=== PATIENT | female | born 1955 | race Hispanic/Latino ===

== ENCOUNTER 2022-06-21 00:05 | Emergency (ER) | payer OTHER ==
[~2022-06-21] VITALS: Ht 154.9 cm; Wt 73.0 kg
[2022-06-21] MEDS ORDERED: MORPHINE 2 MG SYG IM ONE (01:00)
[2022-06-21] MEDS ORDERED: ONDANSETRON ODT 4MG TAB SL ONE (01:00)
[2022-06-21] MEDS ORDERED: CEFTRIAXONE 1G VIAL IM ONE (01:00)
[2022-06-21 01:16] LABS: APPEARANCE,URINE TURBID (CLEAR); BILIRUBIN,URINE NEGATIVE (NEGATIVE); COLOR,URINE YELLOW (YELLOW); GLUCOSE, URINE (UA) 150 mg/dL (NEGATIVE); KETONES,URINE NEGATIVE (NEGATIVE); LEUKOCYTE ESTERASE ,URINE 500 Leu/uL (NEGATIVE); NITRATE,URINE NEGATIVE (NEGATIVE); OCCULT BLOOD,URINE SMALL (NEGATIVE); PH,URINE 5.5 (5.0-8.0); PROTEIN,URINE 100 mg/dL (NEGATIVE); UROBILINOGEN,URINE 0.2 mg/dL (0.2-1.0)
[2022-06-21 01:26] LABS: BACTERIA,URINE MANY /HPF (None Seen); WBC,URINE TNTC /HPF (0-1)
[2022-06-21 01:28] LABS: SQUAMOUS EPITHELIAL CELL,UR Few /HPF (0-2)
[2022-06-21 01:33] VITALS: BP 141/78
[2022-06-21] MEDS ORDERED: AMOX1TAB16 PO (01:53)
== END 2022-06-21 02:05 | disposition home or self-care (01) ==
LOC: EDH 00:05
DX: T83.098A Other mechanical complication of other urinary catheter, initial encounter (principal); N39.0 Urinary tract infection, site not specified; I10 Essential (primary) hypertension; E78.00 Pure hypercholesterolemia, unspecified; E11.9 Type 2 diabetes mellitus without complications; Z79.2 Long term (current) use of antibiotics
CPT/HCPCS: 99284; 87077; 87088; 87186; 81001; 51702; 96372; J0696

== ENCOUNTER 2023-01-02 15:51 | Inpatient (IN) | payer OTHER ==
[~2023-01-02] VITALS: Ht 152.4 cm; Wt 78.6 kg
[2023-01-02] MEDS: METRONIDAZOLE 500MG/100ML BAG 100 ML IVPB SCH (05:15)
[~2023-01-02 15:51] MED LIST: AMOX1TAB16 PO
[2023-01-02 17:32] LABS: BASOPHILS # (AUTO) 0.06 K/uL (0.00-0.20); BASOPHILS % (AUTO) 0.4 % (0.0-5.0); EOSINOPHILS # (AUTO) 0.19 K/uL (0.00-0.70); EOSINOPHILS % (AUTO) 1.2 % (0.0-8.0); HEMATOCRIT 27.7 % (36-48); IMMATURE GRANULOCYTE ABSOLUTE 0.41 K/uL (0-1); LYMPHOCYTES # (AUTO) 1.3 K/uL (1.0-4.8); MEAN CORPUSCULAR HEMOGLOBIN 28.4 pg (27.0-33.0); MEAN CORPUSCULAR HGB CONC 34.7 g/dL (32.0-36.0); MONOCYTES % (AUTO) 6.6 % (3.0-13.0); NEUTROPHILS # (AUTO) 12.6 K/uL (1.8-7.7); NEUTROPHILS % (AUTO) 81.2 % (40.0-77.0); PLATELET COUNT (AUTO) 366 K/uL (130-400); RED BLOOD CELL COUNT(AUTO) 3.38 MIL/uL (4.00-5.50); WHITE BLOOD COUNT (AUTO) 15.6 K/uL (4.8-10.8)
[2023-01-02 18:07] LABS: ALBUMIN 2.5 g/dL (3.5-5.0); BILIRUBIN,TOTAL 0.3 mg/dL (0.2-1.0); CREATININE 2.2 mg/dL (0.5-1.5); POTASSIUM 3.5 mmol/L (3.5-5.1); TOTAL PROTEIN, SERUM 8.7 g/dL (6.0-8.3)
[2023-01-02] MEDS ORDERED: ZOSYN 3.375GM +NS 50ML IVPB ONE (18:30)
[2023-01-02] MEDS ORDERED: 0.9%NACL 1000ML 1,365 ML IV ONE (18:30)
[2023-01-02] MEDS ORDERED: VANCOMYCIN KIT 1 GM/250 ML IV.KIT IV ONE (18:30)
[2023-01-02 18:57] LABS: BAND NEUTROPHILS % (MANUAL) 14 % (0-2); EOSINOPHILS % (MANUAL) 2 % (1-6); LYMPHOCYTES % (MANUAL) 9 % (22-44); MAN.DIFF COMMENT-IMPRESSION MANUAL DIFFERENTIAL; MONOCYTES % (MANUAL) 9 % (2-9); PLATELET MORPHOLOGY COMMENT ADEQUATE; SEGMENTED NEUTROPHILS % 66 % (40-70); TOTAL CELLS COUNTED 100; WBC MORPHOLOGY CONSISTENT W/DIFF
[2023-01-02] MEDS ORDERED: NITROGLYCERIN 0.4 MG SL TAB SL PRN (19:00)
[2023-01-02] MEDS ORDERED: ALBUTEROL 0.083% 2.5 MG/3 ML INH IH PRN (19:00)
[2023-01-02] MEDS ORDERED: GUAIFENESIN-DM 200/20 MG 10 ML PO PRN (19:00)
[2023-01-02] MEDS ORDERED: DOCUSATE SODIUM 100 MG CAP PO PRN (19:00)
[2023-01-02] MEDS ORDERED: DiphenhydrAMINE HCL 50 MG/ML VIAL IV PRN (19:00)
[2023-01-02] MEDS ORDERED: ACETAMINOPHEN 325 MG TAB PO PRN (19:00)
[2023-01-02] MEDS ORDERED: GUAIFENESIN SUGAR-FREE 100 MG/5 ML UDCUP PO PRN (19:00)
[2023-01-02] MEDS ORDERED: ALPRAZOLAM 0.5 MG TABLET PO PRN (19:00)
[2023-01-02] MEDS ORDERED: LACTULOSE 20 GM/30 ML UDCUP PO PRN (19:00)
[2023-01-02] MEDS ORDERED: MAG/ALUM/SIMETH 30 ML UDCUP PO PRN (19:00)
[2023-01-02] MEDS ORDERED: POLYETHYLENE GLYCOL 3350 17 GM POWD.PACK PO PRN (19:00)
[2023-01-02] MEDS ORDERED: ZOLPIDEM TARTRATE 5 MG TAB PO PRN (19:00)
[2023-01-02] MEDS ORDERED: HYDRALAZINE 25MG TABLET PO PRN (19:00)
[2023-01-02] MEDS ORDERED: DEXTROSE 50%-WATER 50 ML DISP.SYRIN IV PRN (19:30)
[2023-01-02] MEDS ORDERED: GLUCAGON 1MG KIT 1 MG ML IM PRN (19:30)
[2023-01-02] MEDS ORDERED: MANNITOL 20% 250ML IV.SOLN IV SCH (19:30)
[2023-01-02] MEDS ORDERED: MAGNESIUM 2GM PREMIX 50ML 50 ML IV SCH (19:30)
[2023-01-02] MEDS ORDERED: 0.9%NACL 1000ML 1,000 ML IV SCH (19:30)
[2023-01-02] MEDS ORDERED: POTASSIUM CHLORIDE 10MEQ/100ML 100 ML IV PRN (19:30)
[2023-01-02] MEDS ORDERED: INSULIN REGULAR, HUMAN 3ML 100 UNIT in 0.9%NACL 100ML 100 ML IV SCH ×2 (19:30)
[2023-01-02] MEDS ORDERED: MANNITOL 20% 500 ML IV.SOLN IV SCH (19:30)
[2023-01-02] MEDS ORDERED: D5W-1/2 NS/20MEQ KCL 1,000 ML IV SCH (19:30)
[2023-01-02 19:38] LABS: ABG BASE EXCESS -8.1 mmol/L (-2.0-3.0); ABG HCO3 15.8 mmol/L (21.0-28.0); ABG OXYGEN SATURATION 97.3 % (95.0-99.0); ABG PCO2 29 mmHg (32-45); ABG PH 7.356 (7.35-7.450); PO2, ARTERIAL BG 97.9 mmHg (83.0-108.0); VENT MODE, BG RA (ROOM AIR)
[2023-01-02] MEDS: FAMOTIDINE 20MG VIAL IV SCH (20:23)
[2023-01-02] MEDS: HEPARIN 5,000 UNIT VIAL SQ SCH (20:23)
[2023-01-02 20:24] VITALS: PULSE 90; RESP 18; O2SAT 100
[2023-01-02] MEDS: INSULIN NPH 100 UNIT/ML 3ML SQ SCH (22:02)
[2023-01-02 22:22] LABS: CREATININE 2.2 mg/dL (0.5-1.5); POTASSIUM 3.4 mmol/L (3.5-5.1)
[2023-01-02] MEDS: ZOSYN 3.375GM +NS 50ML IVPB SCH (23:33)
[2023-01-02 23:34] LABS: CREATININE 1.8 mg/dL (0.5-1.5)
[2023-01-02 23:43] LABS: POTASSIUM 2.9 mmol/L (3.5-5.1)
[2023-01-03] VITALS (22 sets, daily range): BP systolic 98–137; BP diastolic 45–70; PULSE 67–90; RESP 12–18; O2SAT 95–96
[2023-01-03] MEDS ORDERED: HYDROMORPHONE 0.5 MG SYG (0.5MG/0.5ML) ONE (00:10)
[2023-01-03] MEDS: HYDROMORPHONE 2 MG VIAL (2MG/ML) IVP PRN ×2 (00:12→13:50)
[2023-01-03] MEDS: CLINDAMYCIN IVPB 600MG/50ML 50 ML IV SCH ×4 (03:14→19:13)
[2023-01-03] MEDS: ONDANSETRON 4MG INJ IV PRN (03:59)
[2023-01-03 04:32] LABS: BASOPHILS # (AUTO) 0.06 K/uL (0.00-0.20); BASOPHILS % (AUTO) 0.4 % (0.0-5.0); EOSINOPHILS # (AUTO) 0.28 K/uL (0.00-0.70); EOSINOPHILS % (AUTO) 2.1 % (0.0-8.0); HEMATOCRIT 25.7 % (36-48); IMMATURE GRANULOCYTE ABSOLUTE 0.38 K/uL (0-1); LYMPHOCYTES # (AUTO) 1.6 K/uL (1.0-4.8); LYMPHOCYTES % (AUTO) 11.7 % (21.0-51.0); MEAN CORPUSCULAR HEMOGLOBIN 28.1 pg (27.0-33.0); MEAN CORPUSCULAR HGB CONC 32.7 g/dL (32.0-36.0); MONOCYTES # (AUTO) 1.2 K/uL (0.1-1.0); NEUTROPHILS # (AUTO) 9.9 K/uL (1.8-7.7); PLATELET COUNT (AUTO) 312 K/uL (130-400); RED BLOOD CELL COUNT(AUTO) 2.99 MIL/uL (4.00-5.50); RED CELL DISTRIBUTION WIDTH 13.3 % (11.0-15.5); WHITE BLOOD COUNT (AUTO) 13.4 K/uL (4.8-10.8)
[2023-01-03 04:58] LABS: BILIRUBIN,TOTAL 0.3 mg/dL (0.2-1.0); CREATININE 1.6 mg/dL (0.5-1.5); POTASSIUM 3.8 mmol/L (3.5-5.1); TOTAL PROTEIN, SERUM 7.2 g/dL (6.0-8.3)
[2023-01-03] MEDS: METRONIDAZOLE 500MG/100ML BAG 100 ML IVPB SCH ×3 (05:57→21:02)
[2023-01-03] MEDS: 0.9%NACL 1000ML 1,000 ML IV SCH ×3 (05:57→21:03)
[2023-01-03] MEDS: HEPARIN 5,000 UNIT VIAL SQ SCH ×3 (05:59→19:14)
[2023-01-03] MEDS ORDERED: MAGNESIUM 2GM PREMIX 50ML 50 ML IV PRN (06:00)
[2023-01-03] MEDS ORDERED: POTASSIUM CHLORIDE 20MEQ/100ML 100 ML IV PRN ×2 (06:00)
[2023-01-03] MEDS: ZOSYN 3.375GM +NS 50ML IVPB SCH ×2 (06:14→19:13)
[2023-01-03] MEDS: INSULIN HUMULIN R 100 UNIT/ML 3ML SQ SCH ×4 (07:30→20:42)
[2023-01-03] MEDS: INSULIN NPH 100 UNIT/ML 3ML SQ SCH (09:00)
[2023-01-03] MEDS: KCL 20 MEQ ERTAB PO PRN ×2 (19:15→21:03)
[2023-01-03] MEDS: HYDROMORPHONE 0.5 MG SYG (0.5MG/0.5ML) IVP PRN (20:02)
[2023-01-03] MEDS: FAMOTIDINE 20MG VIAL IV SCH (21:03)
[2023-01-03] MEDS: ACETAMINOPHEN WITH CODEINE 1 TAB TAB PO PRN (23:40)
[2023-01-04] VITALS (28 sets, daily range): BP systolic 103–135; BP diastolic 51–81; PULSE 78–93; RESP 12–20; O2SAT 96
[2023-01-04] MEDS: HEPARIN 5,000 UNIT VIAL SQ SCH ×3 (02:54→18:24)
[2023-01-04] MEDS: CLINDAMYCIN IVPB 600MG/50ML 50 ML IV SCH ×3 (04:12→18:15)
[2023-01-04] MEDS: HYDROMORPHONE 0.5 MG SYG (0.5MG/0.5ML) IVP PRN ×3 (04:15→17:18)
[2023-01-04 05:35] LABS: BASOPHILS # (AUTO) 0.09 K/uL (0.00-0.20); BASOPHILS % (AUTO) 0.6 % (0.0-5.0); EOSINOPHILS # (AUTO) 0.26 K/uL (0.00-0.70); EOSINOPHILS % (AUTO) 1.6 % (0.0-8.0); HEMATOCRIT 25.1 % (36-48); IMMATURE GRANULOCYTE ABSOLUTE 0.43 K/uL (0-1); LYMPHOCYTES # (AUTO) 1.6 K/uL (1.0-4.8); LYMPHOCYTES % (AUTO) 9.7 % (21.0-51.0); MEAN CORPUSCULAR HEMOGLOBIN 28.7 pg (27.0-33.0); MEAN CORPUSCULAR HGB CONC 33.1 g/dL (32.0-36.0); MEAN CORPUSCULAR VOLUME 86.9 fL (79-99); MONOCYTES # (AUTO) 1.2 K/uL (0.1-1.0); MONOCYTES % (AUTO) 7.7 % (3.0-13.0); NEUTROPHILS # (AUTO) 12.6 K/uL (1.8-7.7); NEUTROPHILS % (AUTO) 77.7 % (40.0-77.0); PLATELET COUNT (AUTO) 296 K/uL (130-400); RED BLOOD CELL COUNT(AUTO) 2.89 MIL/uL (4.00-5.50); RED CELL DISTRIBUTION WIDTH 13.8 % (11.0-15.5); WHITE BLOOD COUNT (AUTO) 16.2 K/uL (4.8-10.8)
[2023-01-04 05:37] LABS: CREATININE 1.2 mg/dL (0.5-1.5); POTASSIUM 3.9 mmol/L (3.5-5.1)
[2023-01-04] MEDS: ZOSYN 3.375GM +NS 50ML IVPB SCH ×2 (06:04→18:15)
[2023-01-04] MEDS: METRONIDAZOLE 500MG/100ML BAG 100 ML IVPB SCH ×2 (06:04→14:50)
[2023-01-04] MEDS: INSULIN HUMULIN R 100 UNIT/ML 3ML SQ SCH ×4 (06:04→20:54)
[2023-01-04 08:25] LABS: SARS-CoV-2, RNA, NAAT NEGATIVE SARS CoV-2 (NEGATIVE)
[2023-01-04] MEDS ORDERED: BUPIVACAINE/PF 0.5% 30ML VIAL ONE (12:14)
[2023-01-04] MEDS ORDERED: EPINEPHRINE PF 1MG (1:1,000) 1 MG/ML AMP ONE (12:14)
[2023-01-04] MEDS ORDERED: PROPOFOL 10 MG/ML 20ML VIAL IV ONE (12:16)
[2023-01-04] MEDS ORDERED: MIDAZOLAM HCL 1 MG/ML 2ML VIAL ONE (12:16)
[2023-01-04] MEDS ORDERED: LIDOCAINE PF 100MG/5ML (2%) SYRINGE 5ML ONE (12:16)
[2023-01-04] MEDS ORDERED: ONDANSETRON 4MG INJ ONE (12:17)
[2023-01-04] MEDS ORDERED: PHENYLEPHRINE HCL 10 MG/ML 1ML VIAL IV ONE (12:27)
[2023-01-04] MEDS ORDERED: FENTANYL CITRATE PF 50 MCG/1 ML 2ML VIAL ONE (12:39)
[2023-01-04] MEDS: ONDANSETRON 4MG INJ IV PRN (17:17)
[2023-01-04] MEDS: 0.9%NACL 1000ML 1,000 ML IV SCH ×2 (17:19→18:23)
[2023-01-04] MEDS ORDERED: VANCOMYCIN 1.5 GM/250 ML BAG 250 ML IV ONE (20:00)
[2023-01-04] MEDS ORDERED: VANCOMYCIN PROTOCOL PER PHARMACY IV SCH (20:00)
[2023-01-04] MEDS: FAMOTIDINE 20MG VIAL IV SCH (20:53)
[2023-01-05] MEDS: MORPHINE 4 MG SYG IV PRN (00:51)
[2023-01-05] MEDS: 0.9%NACL 1000ML 1,000 ML IV SCH ×2 (03:01→14:00)
[2023-01-05] MEDS: CLINDAMYCIN IVPB 600MG/50ML 50 ML IV SCH (03:01)
[2023-01-05] MEDS: HEPARIN 5,000 UNIT VIAL SQ SCH ×3 (03:02→19:25)
[2023-01-05 04:20] VITALS: BP 106/55; PULSE 80; RESP 18
[2023-01-05 04:58] LABS: BASOPHILS # (AUTO) 0.07 K/uL (0.00-0.20); BASOPHILS % (AUTO) 0.4 % (0.0-5.0); EOSINOPHILS # (AUTO) 0.28 K/uL (0.00-0.70); EOSINOPHILS % (AUTO) 1.8 % (0.0-8.0); HEMATOCRIT 23.8 % (36-48); LYMPHOCYTES # (AUTO) 1.5 K/uL (1.0-4.8); LYMPHOCYTES % (AUTO) 9.7 % (21.0-51.0); MEAN CORPUSCULAR HEMOGLOBIN 28.6 pg (27.0-33.0); MEAN CORPUSCULAR HGB CONC 32.8 g/dL (32.0-36.0); MEAN CORPUSCULAR VOLUME 87.2 fL (79-99); MONOCYTES # (AUTO) 0.9 K/uL (0.1-1.0); MONOCYTES % (AUTO) 5.7 % (3.0-13.0); NEUTROPHILS # (AUTO) 12.8 K/uL (1.8-7.7); NEUTROPHILS % (AUTO) 80.5 % (40.0-77.0); PLATELET COUNT (AUTO) 247 K/uL (130-400); RED BLOOD CELL COUNT(AUTO) 2.73 MIL/uL (4.00-5.50); RED CELL DISTRIBUTION WIDTH 14.1 % (11.0-15.5); WHITE BLOOD COUNT (AUTO) 15.9 K/uL (4.8-10.8)
[2023-01-05 05:14] LABS: CREATININE 1.3 mg/dL (0.5-1.5); POTASSIUM 4.3 mmol/L (3.5-5.1)
[2023-01-05 07:00] VITALS: BP 115/58; PULSE 78; RESP 18
[2023-01-05] MEDS: INSULIN HUMULIN R 100 UNIT/ML 3ML SQ SCH ×4 (07:30→20:16)
[2023-01-05] MEDS: ACETAMINOPHEN WITH CODEINE 1 TAB TAB PO PRN ×2 (08:03→16:55)
[2023-01-05] MEDS: ZOSYN 3.375GM +NS 50ML IVPB SCH ×2 (08:03→19:00)
[2023-01-05 11:00] VITALS: BP 110/56; PULSE 77; RESP 20
[2023-01-05] MEDS ORDERED: FENTANYL 12 MCG/HR PATCH TD SCH (11:00)
[2023-01-05 12:13] LABS: INR 0.98 (0.85-1.15); PROTHROMBIN TIME 11.4 SEC (9.6-11.6)
[2023-01-05 12:14] LABS: PARTIAL THROMBOPLASTIN TIME 27.3 SEC (26.3-35.5)
[2023-01-05 14:33] LABS: APPEARANCE,URINE SL CLOUDY (CLEAR); BILIRUBIN,URINE NEGATIVE (NEGATIVE); COLOR,URINE YELLOW (YELLOW); GLUCOSE, URINE (UA) 100 mg/dL (NEGATIVE); KETONES,URINE NEGATIVE (NEGATIVE); LEUKOCYTE ESTERASE ,URINE MODERATE Leu/uL (NEGATIVE); NITRATE,URINE NEGATIVE (NEGATIVE); OCCULT BLOOD,URINE MODERATE (NEGATIVE); PROTEIN,URINE 100 mg/dL (NEGATIVE); UROBILINOGEN,URINE 0.2 mg/dL (0.2-1.0)
[2023-01-05 14:34] LABS: ADD UA MICROSCOPIC YES
[2023-01-05 14:45] LABS: BACTERIA,URINE RARE /HPF (None Seen); MUCUS,URINE RARE LPF (None Seen); NON-SQUAMOUS EPITHELIAL CELL 1 /HPF (0-2); RBC,URINE 26-50 /HPF (0-1); SQUAMOUS EPITHELIAL CELL,UR RARE /HPF (0-2); UNCLASSIFIED CRYSTAL 7 /HPF (None Seen); WBC CLUMP FEW /HPF (0-1); WBC,URINE 51-100 /HPF (0-1); YEAST,URINE BUDDING FEW /HPF (None Seen)
[2023-01-05 16:00] VITALS: BP 121/61; PULSE 84; RESP 20
[2023-01-05 19:55] VITALS: BP 114/59; PULSE 85; RESP 14
[2023-01-05 20:00] VITALS: O2SAT 96
[2023-01-05] MEDS ORDERED: VANCOMYCIN 1.25 GM/250 ML BAG 250 ML IV SCH (20:00)
[2023-01-05] MEDS: FAMOTIDINE 20MG VIAL IV SCH (20:13)
[2023-01-05] MEDS: HYDROMORPHONE 0.5 MG SYG (0.5MG/0.5ML) IVP PRN (20:15)
[2023-01-05] MEDS ORDERED: VANCOMYCIN 1.5 GM/250 ML BAG 250 ML IV SCH (21:00)
[2023-01-05] MEDS ORDERED: COMPOUND IV REFRIGERATED 1 EACH IVSOLN MISC PRN (23:00)
[2023-01-06] VITALS (8 sets, daily range): BP systolic 107–127; BP diastolic 55–60; PULSE 72–78; RESP 12–18; O2SAT 96–100
[2023-01-06] MEDS: ACETAMINOPHEN WITH CODEINE 1 TAB TAB PO PRN (01:48)
[2023-01-06] MEDS: ZOSYN 3.375GM +NS 50ML IVPB SCH ×3 (03:46→21:22)
[2023-01-06] MEDS: HEPARIN 5,000 UNIT VIAL SQ SCH ×3 (04:09→21:24)
[2023-01-06] MEDS: INSULIN HUMULIN R 100 UNIT/ML 3ML SQ SCH ×4 (05:47→21:24)
[2023-01-06] MEDS: HYDROMORPHONE 0.5 MG SYG (0.5MG/0.5ML) IVP PRN ×2 (06:47→13:30)
[2023-01-06] MEDS: SODIUM HYPOCHLORITE 0.25% [HALF STRENGTH] 473 ML TOPICAL SOLN TP SCH (10:42)
[2023-01-06] MEDS: 0.9%NACL 1000ML 1,000 ML IV SCH ×2 (17:44→20:00)
[2023-01-06] MEDS: DOXYCYCLINE 100MG+NS 250ML IV SCH (17:51)
[2023-01-06] MEDS: INSULIN NPH 100 UNIT/ML 3ML SQ SCH (17:55)
[2023-01-06] MEDS: ACETAMINOPHEN 325 MG TAB PO PRN (21:21)
[2023-01-06] MEDS: FAMOTIDINE 20MG VIAL IV SCH (21:22)
[2023-01-07] VITALS (7 sets, daily range): BP systolic 101–162; BP diastolic 57–82; PULSE 69–85; RESP 16–18; O2SAT 100
[2023-01-07] MEDS: ZOSYN 3.375GM +NS 50ML IVPB SCH ×3 (03:45→20:42)
[2023-01-07] MEDS: HEPARIN 5,000 UNIT VIAL SQ SCH ×3 (03:46→20:44)
[2023-01-07 03:57] LABS: CREATININE 1.2 mg/dL (0.5-1.5); POTASSIUM 3.8 mmol/L (3.5-5.1)
[2023-01-07 04:52] LABS: BASOPHILS # (AUTO) 0.04 K/uL (0.00-0.20); BASOPHILS % (AUTO) 0.5 % (0.0-5.0); EOSINOPHILS # (AUTO) 0.29 K/uL (0.00-0.70); EOSINOPHILS % (AUTO) 3.7 % (0.0-8.0); HEMATOCRIT 21.8 % (36-48); IMMATURE GRANULOCYTE ABSOLUTE 0.23 K/uL (0-1); LYMPHOCYTES # (AUTO) 1.2 K/uL (1.0-4.8); LYMPHOCYTES % (AUTO) 15.9 % (21.0-51.0); MEAN CORPUSCULAR HEMOGLOBIN 28.3 pg (27.0-33.0); MEAN CORPUSCULAR HGB CONC 32.1 g/dL (32.0-36.0); MEAN CORPUSCULAR VOLUME 88.3 fL (79-99); MONOCYTES # (AUTO) 0.6 K/uL (0.1-1.0); MONOCYTES % (AUTO) 7.4 % (3.0-13.0); NEUTROPHILS # (AUTO) 5.4 K/uL (1.8-7.7); NEUTROPHILS % (AUTO) 69.6 % (40.0-77.0); PLATELET COUNT (AUTO) 221 K/uL (130-400); RED BLOOD CELL COUNT(AUTO) 2.47 MIL/uL (4.00-5.50); RED CELL DISTRIBUTION WIDTH 13.7 % (11.0-15.5); WHITE BLOOD COUNT (AUTO) 7.8 K/uL (4.8-10.8)
[2023-01-07] MEDS: DOXYCYCLINE 100MG+NS 250ML IV SCH ×2 (05:34→17:12)
[2023-01-07] MEDS: KCL 20 MEQ ERTAB PO PRN (05:35)
[2023-01-07] MEDS: 0.9%NACL 1000ML 1,000 ML IV SCH (06:00)
[2023-01-07] MEDS: INSULIN HUMULIN R 100 UNIT/ML 3ML SQ SCH ×4 (06:47→20:47)
[2023-01-07] MEDS: INSULIN NPH 100 UNIT/ML 3ML SQ SCH ×2 (06:47→17:15)
[2023-01-07] MEDS: SODIUM HYPOCHLORITE 0.25% [HALF STRENGTH] 473 ML TOPICAL SOLN TP SCH (09:25)
[2023-01-07] MEDS: MORPHINE 4 MG SYG IV PRN ×2 (13:08→21:09)
[2023-01-07] MEDS ORDERED: FUROSEMIDE 40MG VIAL IV ONE (16:00)
[2023-01-07] MEDS: FAMOTIDINE 20MG VIAL IV SCH (20:44)
[2023-01-08] VITALS: BP 118/62; PULSE 71; RESP 16
[2023-01-08] MEDS: DIPHENHYDRAMINE HCL 25 MG CAPSULE PO PRN ×2 (02:35→19:29)
[2023-01-08] MEDS: ACETAMINOPHEN WITH CODEINE 1 TAB TAB PO PRN ×2 (02:36→19:29)
[2023-01-08] MEDS: ZOSYN 3.375GM +NS 50ML IVPB SCH ×3 (02:36→19:23)
[2023-01-08] MEDS: HEPARIN 5,000 UNIT VIAL SQ SCH ×3 (02:39→19:25)
[2023-01-08 04:00] VITALS: BP 121/64; PULSE 73; RESP 17
[2023-01-08] MEDS: DOXYCYCLINE 100MG+NS 250ML IV SCH ×2 (04:03→17:29)
[2023-01-08 04:45] LABS: BASOPHILS # (AUTO) 0.04 K/uL (0.00-0.20); BASOPHILS % (AUTO) 0.6 % (0.0-5.0); EOSINOPHILS # (AUTO) 0.25 K/uL (0.00-0.70); EOSINOPHILS % (AUTO) 3.9 % (0.0-8.0); HEMATOCRIT 23.2 % (36-48); IMMATURE GRANULOCYTE ABSOLUTE 0.17 K/uL (0-1); LYMPHOCYTES # (AUTO) 1.2 K/uL (1.0-4.8); LYMPHOCYTES % (AUTO) 19.1 % (21.0-51.0); MEAN CORPUSCULAR HEMOGLOBIN 28.7 pg (27.0-33.0); MEAN CORPUSCULAR HGB CONC 32.8 g/dL (32.0-36.0); MEAN CORPUSCULAR VOLUME 87.5 fL (79-99); MONOCYTES # (AUTO) 0.5 K/uL (0.1-1.0); MONOCYTES % (AUTO) 7.6 % (3.0-13.0); NEUTROPHILS # (AUTO) 4.3 K/uL (1.8-7.7); NEUTROPHILS % (AUTO) 66.2 % (40.0-77.0); PLATELET COUNT (AUTO) 262 K/uL (130-400); RED BLOOD CELL COUNT(AUTO) 2.65 MIL/uL (4.00-5.50); RED CELL DISTRIBUTION WIDTH 13.6 % (11.0-15.5); WHITE BLOOD COUNT (AUTO) 6.4 K/uL (4.8-10.8)
[2023-01-08 04:54] LABS: CREATININE 1.6 mg/dL (0.5-1.5); POTASSIUM 4.4 mmol/L (3.5-5.1)
[2023-01-08] MEDS: INSULIN HUMULIN R 100 UNIT/ML 3ML SQ SCH ×4 (06:23→21:16)
[2023-01-08] MEDS: INSULIN NPH 100 UNIT/ML 3ML SQ SCH ×2 (06:49→17:31)
[2023-01-08 08:00] VITALS: BP 136/68; PULSE 71; RESP 18
[2023-01-08] MEDS: SODIUM HYPOCHLORITE 0.25% [HALF STRENGTH] 473 ML TOPICAL SOLN TP SCH (09:51)
[2023-01-08 12:00] VITALS: BP 136/81; PULSE 78; RESP 18
[2023-01-08] MEDS: HYDROMORPHONE 0.5 MG SYG (0.5MG/0.5ML) IVP PRN (13:09)
[2023-01-08 16:00] VITALS: BP 127/67; PULSE 88; RESP 18
[2023-01-08] MEDS: FAMOTIDINE 20MG VIAL IV SCH (19:28)
[2023-01-08 19:50] VITALS: BP 129/63; PULSE 79; RESP 18
[2023-01-09] VITALS (8 sets, daily range): BP systolic 121–158; BP diastolic 56–71; PULSE 75–87; RESP 15–18; O2SAT 99
[2023-01-09] MEDS: ZOSYN 3.375GM +NS 50ML IVPB SCH ×3 (02:57→18:09)
[2023-01-09] MEDS: HEPARIN 5,000 UNIT VIAL SQ SCH ×3 (02:59→18:09)
[2023-01-09] MEDS: DOXYCYCLINE 100MG+NS 250ML IV SCH ×2 (05:19→16:56)
[2023-01-09] MEDS: INSULIN HUMULIN R 100 UNIT/ML 3ML SQ SCH ×4 (05:58→21:20)
[2023-01-09] MEDS: INSULIN NPH 100 UNIT/ML 3ML SQ SCH ×2 (06:26→16:54)
[2023-01-09] MEDS: SODIUM HYPOCHLORITE 0.25% [HALF STRENGTH] 473 ML TOPICAL SOLN TP SCH (09:48)
[2023-01-09] MEDS: MORPHINE 4 MG SYG IV PRN (10:39)
[2023-01-09 12:59] LABS: HEMATOCRIT 24.7 % (36-48); MEAN CORPUSCULAR HEMOGLOBIN 28.6 pg (27.0-33.0); MEAN CORPUSCULAR HGB CONC 31.6 g/dL (32.0-36.0); MEAN CORPUSCULAR VOLUME 90.5 fL (79-99); RED BLOOD CELL COUNT(AUTO) 2.73 MIL/uL (4.00-5.50); WHITE BLOOD COUNT (AUTO) 7.6 K/uL (4.8-10.8)
[2023-01-09 13:03] LABS: CREATININE 1.2 mg/dL (0.5-1.5); POTASSIUM 3.8 mmol/L (3.5-5.1)
[2023-01-09] MEDS: FAMOTIDINE 20MG VIAL IV SCH (19:46)
[2023-01-10] VITALS (7 sets, daily range): BP systolic 128–150; BP diastolic 63–69; PULSE 75–82; RESP 16–21; O2SAT 97–98
[2023-01-10] MEDS: ZOSYN 3.375GM +NS 50ML IVPB SCH ×3 (03:27→18:28)
[2023-01-10] MEDS: ACETAMINOPHEN WITH CODEINE 1 TAB TAB PO PRN ×2 (03:33→09:32)
[2023-01-10] MEDS: HEPARIN 5,000 UNIT VIAL SQ SCH ×3 (03:33→18:28)
[2023-01-10] MEDS: DOXYCYCLINE 100MG+NS 250ML IV SCH ×2 (04:24→16:40)
[2023-01-10 05:17] LABS: HEMATOCRIT 22.1 % (36-48); MEAN CORPUSCULAR HEMOGLOBIN 28.6 pg (27.0-33.0); MEAN CORPUSCULAR HGB CONC 32.6 g/dL (32.0-36.0); MEAN CORPUSCULAR VOLUME 87.7 fL (79-99); RED BLOOD CELL COUNT(AUTO) 2.52 MIL/uL (4.00-5.50); RED CELL DISTRIBUTION WIDTH 14.1 % (11.0-15.5); WHITE BLOOD COUNT (AUTO) 7.7 K/uL (4.8-10.8)
[2023-01-10 05:30] LABS: CREATININE 1.1 mg/dL (0.5-1.5); POTASSIUM 3.5 mmol/L (3.5-5.1)
[2023-01-10] MEDS: INSULIN HUMULIN R 100 UNIT/ML 3ML SQ SCH ×4 (05:59→20:40)
[2023-01-10] MEDS: KCL 20 MEQ ERTAB PO PRN (06:28)
[2023-01-10] MEDS: INSULIN NPH 100 UNIT/ML 3ML SQ SCH ×2 (06:29→16:39)
[2023-01-10] MEDS: SODIUM HYPOCHLORITE 0.25% [HALF STRENGTH] 473 ML TOPICAL SOLN TP SCH (09:33)
[2023-01-10] MEDS: FENTANYL 12 MCG/HR PATCH TD SCH (14:00)
[2023-01-10] MEDS: FAMOTIDINE 20MG VIAL IV SCH (20:52)
[2023-01-11] VITALS (8 sets, daily range): BP systolic 126–149; BP diastolic 59–66; PULSE 73–82; RESP 18–20; O2SAT 98–100
[2023-01-11] MEDS: ZOSYN 3.375GM +NS 50ML IVPB SCH ×3 (03:32→18:40)
[2023-01-11] MEDS: HEPARIN 5,000 UNIT VIAL SQ SCH ×3 (03:54→18:40)
[2023-01-11] MEDS: DOXYCYCLINE 100MG+NS 250ML IV SCH ×2 (04:00→16:33)
[2023-01-11] MEDS: INSULIN HUMULIN R 100 UNIT/ML 3ML SQ SCH ×4 (06:16→21:58)
[2023-01-11] MEDS: INSULIN NPH 100 UNIT/ML 3ML SQ SCH ×2 (06:17→16:32)
[2023-01-11] MEDS: DIPHENHYDRAMINE HCL 25 MG CAPSULE PO PRN (06:22)
[2023-01-11] MEDS: SODIUM HYPOCHLORITE 0.25% [HALF STRENGTH] 473 ML TOPICAL SOLN TP SCH (10:36)
[2023-01-11 12:03] LABS: HEMATOCRIT 24.8 % (36-48); MEAN CORPUSCULAR HEMOGLOBIN 28.8 pg (27.0-33.0); MEAN CORPUSCULAR HGB CONC 32.3 g/dL (32.0-36.0); MEAN CORPUSCULAR VOLUME 89.2 fL (79-99); RED BLOOD CELL COUNT(AUTO) 2.78 MIL/uL (4.00-5.50); RED CELL DISTRIBUTION WIDTH 14.4 % (11.0-15.5); WHITE BLOOD COUNT (AUTO) 7.3 K/uL (4.8-10.8)
[2023-01-11 12:14] LABS: CREATININE 1.1 mg/dL (0.5-1.5); POTASSIUM 3.8 mmol/L (3.5-5.1)
[2023-01-11] MEDS: FAMOTIDINE 20MG VIAL IV SCH (20:01)
[2023-01-11] MEDS: ACETAMINOPHEN 325 MG TAB PO PRN (22:48)
[2023-01-12] VITALS (9 sets, daily range): BP systolic 124–158; BP diastolic 59–77; PULSE 72–87; RESP 17–20; O2SAT 99
[2023-01-12] MEDS: HEPARIN 5,000 UNIT VIAL SQ SCH ×3 (04:39→20:49)
[2023-01-12] MEDS: DOXYCYCLINE 100MG+NS 250ML IV SCH ×2 (04:40→17:17)
[2023-01-12] MEDS: ZOSYN 3.375GM +NS 50ML IVPB SCH ×3 (04:40→18:37)
[2023-01-12] MEDS: INSULIN NPH 100 UNIT/ML 3ML SQ SCH ×2 (06:42→17:18)
[2023-01-12] MEDS: INSULIN HUMULIN R 100 UNIT/ML 3ML SQ SCH ×4 (06:42→20:50)
[2023-01-12] MEDS: SODIUM HYPOCHLORITE 0.25% [HALF STRENGTH] 473 ML TOPICAL SOLN TP SCH (09:53)
[2023-01-12] MEDS: FAMOTIDINE 20MG VIAL IV SCH (20:40)
[2023-01-13] MEDS: ZOSYN 3.375GM +NS 50ML IVPB SCH ×3 (03:16→19:00)
[2023-01-13] MEDS: DOXYCYCLINE 100MG+NS 250ML IV SCH ×2 (03:29→16:57)
[2023-01-13 03:35] VITALS: BP 123/64; PULSE 78; RESP 18
[2023-01-13] MEDS: HEPARIN 5,000 UNIT VIAL SQ SCH ×3 (03:39→19:19)
[2023-01-13 05:22] LABS: HEMATOCRIT 23.4 % (36-48); MEAN CORPUSCULAR HEMOGLOBIN 28.8 pg (27.0-33.0); MEAN CORPUSCULAR HGB CONC 32.9 g/dL (32.0-36.0); MEAN CORPUSCULAR VOLUME 87.6 fL (79-99); RED BLOOD CELL COUNT(AUTO) 2.67 MIL/uL (4.00-5.50); RED CELL DISTRIBUTION WIDTH 15.2 % (11.0-15.5); WHITE BLOOD COUNT (AUTO) 7.9 K/uL (4.8-10.8)
[2023-01-13 05:32] LABS: CREATININE 1.3 mg/dL (0.5-1.5); POTASSIUM 3.5 mmol/L (3.5-5.1)
[2023-01-13] MEDS: INSULIN HUMULIN R 100 UNIT/ML 3ML SQ SCH ×3 (06:42→16:54)
[2023-01-13] MEDS: INSULIN NPH 100 UNIT/ML 3ML SQ SCH ×2 (07:30→16:55)
[2023-01-13 08:00] VITALS: BP 142/74; PULSE 79; RESP 18
[2023-01-13 08:30] VITALS: O2SAT 99
[2023-01-13] MEDS: SODIUM HYPOCHLORITE 0.25% [HALF STRENGTH] 473 ML TOPICAL SOLN TP SCH (11:17)
[2023-01-13 12:00] VITALS: BP 156/76; PULSE 79; RESP 18
[2023-01-13] MEDS: FENTANYL 12 MCG/HR PATCH TD SCH (13:08)
[2023-01-13 16:00] VITALS: BP 128/62; PULSE 74; RESP 18
[2023-01-13 20:00] VITALS: BP 152/70; PULSE 77; RESP 20
[2023-01-13] MEDS ORDERED: SODIUM HYPOCHLORITE 0.25% [HALF STRENGTH] 473 ML TOPICAL SOLN TP SCH (21:00)
== END 2023-01-13 20:33 | DRG 853 ==
LOC: EDH 15:51 → EDHIP 18:57 → 2CH 01-03 03:30 → 2DH 01-03 17:33 → 4CH 01-07 08:10
PROVIDERS: ADMIT Internal Medicine Pulmonary Disease; ATTEND Internal Medicine Pulmonary Disease
PROC: 0JBB0ZZ Excision of Perineum Subcutaneous Tissue and Fascia, Open Approach (ICD-10-PCS; 2023-01-04)
PROC: 0JB90ZZ Excision of Buttock Subcutaneous Tissue and Fascia, Open Approach (ICD-10-PCS; principal; 2023-01-04 12:32)
DX: A41.9 Sepsis, unspecified organism (principal); M72.6 Necrotizing fasciitis; N17.0 Acute kidney failure with tubular necrosis; L03.315 Cellulitis of perineum; L02.31 Cutaneous abscess of buttock; N76.4 Abscess of vulva; L02.215 Cutaneous abscess of perineum; N13.6 Pyonephrosis; E87.1 Hypo-osmolality and hyponatremia; E87.20 Acidosis, unspecified; E87.6 Hypokalemia; Z20.822 Contact with and (suspected) exposure to COVID-19; N18.30 Chronic kidney disease, stage 3 unspecified; I12.9 Hypertensive chronic kidney disease with stage 1 through stage 4 chronic kidney disease, or unspecified chronic kidney disease; D64.9 Anemia, unspecified; E11.65 Type 2 diabetes mellitus with hyperglycemia; E11.22 Type 2 diabetes mellitus with diabetic chronic kidney disease; B96.29 Other Escherichia coli [E. coli] as the cause of diseases classified elsewhere; B95.1 Streptococcus, group B, as the cause of diseases classified elsewhere; E66.01 Morbid (severe) obesity due to excess calories; Z68.33 Body mass index [BMI] 33.0-33.9, adult; Z79.4 Long term (current) use of insulin; Z85.038 Personal history of other malignant neoplasm of large intestine; Z90.49 Acquired absence of other specified parts of digestive tract; Z93.3 Colostomy status
CPT/HCPCS: 36415; 36600; 71045; 74176; 76770; 80048; 80053; 80202; 81001; 82010; 82550; 82803; 82948; 83605; 83874; 84145; 84484; 85025; 85027; 85610; 85730; 87040; 87070; 87076; 87077; 87088; 87186; 87635; 88304; 93005; C1894; G0378; J0171; J1170; J1644; J1815; J1940; J2001; J2250; J2270; J2371; J2405; J2543; J2704; J3010; J3370; J3480; J3490; J7030; Q0163; 3370; A4452; A4600; A6446